=== PATIENT | female | born 1985 | race Caucasian/White ===

== ENCOUNTER → 2017-07-02 | Outpatient (CLI) | payer OTHER | LOC: LABWHC1 07:45 | PROVIDERS: ATTEND Obstetrics & Gynecology | DX: Z31.69 Encounter for other general counseling and advice on procreation (principal) | CPT/HCPCS: 36415; 83001; 83002; 84439; 84443 ==

== ENCOUNTER → 2018-07-04 | Outpatient (CLI) | payer OTHER ==
--- NOTE | 2018-07-05 14:38 | US ---
EXAMINATION TYPE: US thyroid st tissue head/neck DATE OF EXAM: 07/04/2018 COMPARISON: NONE CLINICAL HISTORY: E04.1 Thyroid nodule. GLAND SIZE: Right Lobe: 4.2 x 1.3 x 1.4 cm Overall Parenchyma: homogenous Left Lobe: 5.1 x 1.5 x 1.2 cm Overall Parenchyma: homogeneous Isthmus Thickness: 0.4 cm NODULES RIGHT: # of nodules measured on right: 1 1. 0.6 X 0.4 x 0.5 cm hypoechoic mixed nodule at the mid pole with well-defined margins; . This no dule is wider than tall and shows no intranodular vascularity. Prior size: No previous LEFT: # of nodules measured on left: 1 1. 0.9 X 0.6 x 0.6 cm hypoechoic cystic nodule at the lower pole with well-defined margins; . This nodule is wider than tall and shows no intranodular vascularity. Prior size: No previous ISTHMUS: # of nodules measured in the isthmus: 0 Bilateral neck scanned, no evidence of lymphadenopathy. IMPRESSION: Subcentimeter nodules present bilaterally.
== END ==
LOC: RADUSWWP 16:01
PROVIDERS: ATTEND Surgery
DX: E04.2 Nontoxic multinodular goiter (principal)
CPT/HCPCS: 76536

== ENCOUNTER → 2018-12-25 | Outpatient (CLI) | payer OTHER ==
--- NOTE | 2018-12-25 15:50 | US ---
EXAMINATION TYPE: US thyroid st tissue head/neck DATE OF EXAM: 12/25/2018 COMPARISON: US 2018 CLINICAL HISTORY: E04.1 Thyroid nodule. Thyroid nodules, on thyroid meds. GLAND SIZE: Right Lobe: 4.5 x 1.8 x 1.8 cm Overall Parenchyma: homogenous Left Lobe: 5.5 x 1.6 x 1.5 cm Overall Parenchyma: homogeneous Isthmus Thickness: 0.3 cm NODULES RIGHT: # of nodules measured on right: 1 1. 1.0 X 0.4 x 1.0 cm hypoechoic mixed nodule at the lower pole with well-defined margins. This nod ule is wider than tall and shows intranodular vascularity. Prior size: no previous 2. 0.6 X 0.5 x 0.5 cm hyperechoic with hypoechoic peripheral rim nodule at the mid pole with well-d efined margins. This nodule is wider than tall and shows no intranodular vascularity. Prior size: 0.6 x 0.4 x 0.5 cm LEFT: # of nodules measured on left: 1 1. 0.9 X 0.7 x 0.7 cm hypoechoic cystic nodule at the lower pole with well-defined margins. This no dule is wider than tall and shows no intranodular vascularity. Prior size: 0.9 x 0.6 x 0.6 cm ISTHMUS: # of nodules measured in the isthmus: 0 Bilateral neck scanned, no evidence of lymphadenopathy. Homogeneous normal-sized thyroid with scattered small nodules as detailed above. Largest mixed nodule anterior right thyroid lobe mid to lower pole level likely was present in retrospect on prior study image 12. IMPRESSION: Presumed overall stable findings as detailed above.
== END ==
LOC: RADUSWWP 15:02
PROVIDERS: ATTEND Surgery
DX: E04.1 Nontoxic single thyroid nodule (principal)
CPT/HCPCS: 76536

== ENCOUNTER → 2019-07-18 | Outpatient (CLI) | payer OTHER ==
[2019-07-18 13:38] LABS: HCT 35.5 % (34.0-46.0); HGB 10.8 gm/dL (11.4-16.0); Hypochromasia Moderate; MCH 19.7 pg (25.0-35.0); MCHC 30.4 g/dL (31.0-37.0); MCV 64.8 fL (80.0-100.0); Mean Platelet Volume 6.2; Microcytosis Marked; Platelet Count 415 k/uL (150-450); RBC 5.48 m/uL (3.80-5.40); RDW 15.3 % (11.5-15.5); WBC 13.3 k/uL (3.8-10.6)
[2019-07-18 18:37] LABS: African American GFR (CKD) 131.9 (60.0-200.0); Albumin 4.5 g/dL (3.80-4.90); Albumin/Globulin Ratio 1.88 (1.60-3.17); Anion Gap 10.5 mmol/L (4.00-12.00); BUN/Creat Ratio 14.29 Ratio (12.00-20.00); Calcium 9.5 mg/dL (8.7-10.3); Carbon Dioxide 25.5 mmol/L (21.6-31.8); Globulin 2.4 g/dL (1.6-3.3); Potassium 4.7 mmol/L (3.5-5.5); Total Bilirubin 1.3 mg/dL (0.3-1.2); Total Protein 6.9 g/dL (6.2-8.2)
[2019-07-18 18:46] LABS: Follicle Stimulating Hormone 7.3 mIU/mL
[2019-07-18 21:13] LABS: HIV 1 AB Non-Reactive (Non-Reactive); HIV 2 AB Non-Reactive (Non-Reactive); HIV AB P24 Non-Reactive (Non-Reactive); HIV P24 AG Non-Reactive (Non-Reactive)
[2019-07-18 21:26] LABS: Hemoglobin A1C 5.2 % (4.0-6.0)
[2019-07-18 22:12] LABS: Hepatitis B Surface Antigen Non-Reactive (Non-Reactive); Hepatitis C IgG Antibody Non-Reactive (Non-Reactive)
[2019-07-20 11:31] LABS: Act Protein C Resist Interp Negative; Activated Protein C Resistance 3.53 (1.60-4.90)
== END | disposition home or self-care (01) ==
LOC: LABWHC1 11:58
PROVIDERS: ATTEND Obstetrics & Gynecology Reproductive Endocrinology
DX: Z11.3 Encounter for screening for infections with a predominantly sexual mode of transmission (principal); Z13.29 Encounter for screening for other suspected endocrine disorder; N97.9 Female infertility, unspecified; E03.9 Hypothyroidism, unspecified
CPT/HCPCS: 36415; 80053; 82397; 83001; 83002; 83036; 84146; 84443; 85027; 85307; 86762; 86780; 86803; 86850; 86900; 86901; 87340; 87390

== ENCOUNTER → 2020-05-08 | Outpatient (CLI) | payer OTHER ==
[2020-05-08 11:27] LABS: Basophils # (A) 0.1 k/uL (0-0.2); Basophils % (A) 1 %; Eosinophils # (A) 0.2 k/uL (0-0.7); Eosinophils % (A) 3 %; HCT 36.5 % (34.0-46.0); HGB 11.3 gm/dL (11.4-16.0); Hypochromasia Marked; Lymphocytes # (A) 2.4 k/uL (1.0-4.8); Lymphocytes % (A) 33 %; MCH 20.1 pg (25.0-35.0); MCHC 30.9 g/dL (31.0-37.0); Microcytosis Marked; Monocytes # (A) 0.2 k/uL (0-1.0); Monocytes % (A) 3 %; Neutrophils # (A) 4.3 k/uL (1.3-7.7); Neutrophils % (A) 59 %; Platelet Count 429 k/uL (150-450); RBC 5.61 m/uL (3.80-5.40); RDW 15.9 % (11.5-15.5); WBC 7.2 k/uL (3.8-10.6)
[2020-05-08 11:37] LABS: African American GFR (CKD) >90 (>60 ml/min/1.73 sqM); Anion Gap 10 mmol/L; Blood Urea Nitrogen 7 mg/dL (7-17); Calcium 10.1 mg/dL (8.4-10.2); Carbon Dioxide 23 mmol/L (22-30); Chloride 105 mmol/L (98-107); Glucose 169 mg/dL (74-99); Non-African American GFR(CKD) >90 (>60 ml/min/1.73 sqM); Potassium 4.1 mmol/L (3.5-5.1); Sodium 138 mmol/L (137-145)
[2020-05-08 11:45] LABS: Appearance,Urine Cloudy (Clear); Bacteria,Urine Rare /hpf; Bilirubin,Urine Negative (Negative); Blood,Urine Negative (Negative); Color,Urine Yellow; Glucose,Urine (UA) Negative (Negative); Ketones,Urine Negative (Negative); Leukocyte Esterase,Urine Moderate (Negative); Mucus,Urine Rare /hpf; Nitrite,Urine Negative (Negative); Protein,Urine Negative (Negative); RBC,Urine 3 /hpf (0-5); Specific Gravity,Urine 1.017 (1.001-1.035); Squamous Epithelial Cell,Urine 8 /hpf (0-4); Urobilinogen,Urine <2.0 mg/dL (<2.0); WBC,Urine 9 /hpf (0-5)
== END | disposition home or self-care (01) ==
LOC: LABPAT 10:55
PROVIDERS: ATTEND Urology
DX: Z01.818 Encounter for other preprocedural examination (principal); N13.30 Unspecified hydronephrosis; E11.9 Type 2 diabetes mellitus without complications; N13.2 Hydronephrosis with renal and ureteral calculous obstruction
CPT/HCPCS: 80048; 81001; 85025; 87086

== ENCOUNTER → 2020-05-08 | Outpatient (CLI) | payer OTHER | END | disposition home or self-care (01) | LOC: LABWHC1 10:59 | PROVIDERS: ATTEND Obstetrics & Gynecology Reproductive Endocrinology | DX: Z13.21 Encounter for screening for nutritional disorder (principal) | CPT/HCPCS: 36415; 82306 ==

== ENCOUNTER → 2020-07-28 | Outpatient (CLI) | payer OTHER ==
--- NOTE | 2020-07-28 18:15 | US ---
EXAMINATION TYPE: US kidneys/renal and bladder DATE OF EXAM: 07/28/2020 COMPARISON: 05/14/2020 CLINICAL HISTORY: 34-year-old female N20.1 Calculus of ureter. Follow up from left side lithotripsy a couple months ago TECHNIQUE: Multiple sonographic images of the kidneys and bladder are obtained. EXAM MEASUREMENTS: Right Kidney: 12.0 x 5.7 x 6.5 cm Left Kidney: 11.1 x 5.7 x 4.4 cm No hydronephrosis on either side. On the left, echogenic focus visualized upper pole measuring 0.8 cm Bladder: wnl Bilateral Jets seen: Yes IMPRESSION: No evidence of hydronephrosis. Both ureteral jets are visualized. Suggestion of an 8mm nonobstructive calculus upper pole left kidney.
== END | disposition home or self-care (01) ==
LOC: RADUSWWP 13:35
PROVIDERS: ATTEND Urology
DX: N20.1 Calculus of ureter (principal)
CPT/HCPCS: 76770

== ENCOUNTER → 2024-06-19 | Outpatient (CLI) | payer OTHER ==
[2024-06-19 16:23] LABS: Appearance,Urine Clear (Clear); Bilirubin,Urine Negative (Negative); Blood,Urine Negative (Negative); Color,Urine Yellow (Yellow); Ketones,Urine Negative (Negative); Nitrite,Urine Negative (Negative); Specific Gravity,Urine 1.015 (1.001-1.030)
[2024-06-19 16:55] LABS: Bacteria,Urine None Seen (None Seen); Calcium Oxalate Crystals,Urine Present (None Seen)
[2024-06-19 16:59] LABS: HCT 38.7 % (37.2-46.3); HGB 11.6 g/dL (12.0-15.0); MCH 19.2 pg (27.0-32.0); MCV 64.2 FL (80.0-97.0); Mean Platelet Volume 11.4 FL (9.5-12.2); NRBC Per 100 WBC 0 X 10*3/uL (0.00-0.01); Platelet Count 508 X 10*3/uL (140-440); RBC 6.03 X 10*6/uL (4.10-5.20); RDW 16.3 % (11.5-14.5)
[2024-06-19 17:17] LABS: BUN/Creat Ratio 13.33 Ratio (12.00-20.00); Calcium 9.9 mg/dL (8.7-10.3); Carbon Dioxide 23.8 mmol/L (21.6-31.8); Chloride 102 mmol/L (96-109); Glucose 135 mg/dL (70-110); Sodium 138 mmol/L (135-145)
[2024-06-19 17:36] LABS: Basophils # (A) 0.07 X 10*3/uL (0.00-0.10); Basophils % (A) 0.7 %; Eosinophils % (A) 2.1 %; Lymphocytes # (A) 3.21 X 10*3/uL (0.90-5.00); Lymphocytes % (A) 33.8 %; Microcytosis (M) 3+; Monocytes # (A) 0.51 X 10*3/uL (0.20-1.00); Monocytes % (A) 5.4 %; Neutrophils # (A) 5.45 X 10*3/uL (1.80-7.70); Neutrophils % (A) 57.4 %
== END | disposition home or self-care (01) ==
LOC: LABPAT 10:46
PROVIDERS: ATTEND Urology
DX: Z01.818 Encounter for other preprocedural examination
CPT/HCPCS: 80048; 81001; 85025; 87086

== ENCOUNTER 2024-06-26 09:38 | Day surgery (SDC) | payer OTHER ==
--- NOTE | 2024-06-26 09:59 | XR ---
EXAMINATION TYPE: XR KUB DATE OF EXAM: 06/26/2024 HISTORY: Pain Comparison: 05/14/2020 Single KUB is submitted for interpretation. Findings: Right renal calculi: None Visualized. Right ureteral calculi: None Visualized. Left renal calculi: Lower pole left kidney measuring 11.7 mm. Additional 4 mm calculus upper pole le ft kidney. Left ureteral calculi: None Visualized. Pelvic calcifications: None Visualized. Bowel gas pattern is unremarkable. No free air. No mass effects. IMPRESSION: 1. Significant change in left-sided nephrolithiasis.
[2024-06-26] MEDS ORDERED: droPERidol 5 MG/2 ML VIAL IVP ONE (10:11)
[2024-06-26] MEDS ORDERED: HYDROmorphone 0.5 MG/0.5 ML SYRINGE IVP PRN (10:11)
[2024-06-26] MEDS ORDERED: LIDOCAINE 1% (10MG/ML) FOR IV START INTRADERMA PRN (10:11)
--- NOTE | 2024-06-26 10:21 | P.HPIHPCON ---
History of Present Illness H&P Date: 06/26/24 Chief Complaint: Left renal stone This is a 38-year-old female with history of a 1.2 cm lower pole stone and a 4 mm upper pole stone, she is having left flank pain secondary to her stone, option of left-sided ureteroscopy with holmium laser versus ESWL was discussed, risk-benefit of each approach were discussed, she agreed to proceed with left- sided ureteroscopy with holmium laser, aware of the risk which includes but not limited to bleeding, infection, injury to the ureter Consent for Procedure: I have explained the operation/procedure to the patient, including the risks, benefits, side effects, alternative therapies (including not receiving the proposed treatment or service), the likelihood of the patient achieving his/her goals, and potential recuperation problems for the procedure/sedation/analgesia, as well as any blood products, if indicated. I also explained to the patient the risks, benefits and side effects of the alternatives, as well as the risks related to not receiving the proposed procedure, care, treatment, or services. Past Medical History Past Medical History: Diabetes Mellitus, GERD/Reflux, Thyroid Disorder Additional Past Medical History / Comment(s): pre diabetic diet controlled, hypothyroid - no meds. current kidney stones. History of Any Multi-Drug Resistant Organisms: None Reported Additional Past Surgical History / Comment(s): cystoscopy/lithotrypsy. polyps removed from uterus. IVF, nose surgery to straighten septum Past Anesthesia/Blood Transfusion Reactions: Family History of Problems w/ Anesthesia Additional Past Anesthesia/Blood Transfusion Reaction / Comment(s): mom memory loss Smoking Status: Never smoker - Past Family History Mother Family Medical History: Cancer Additional Family Medical History / Comment(s): breast cancer Medications and Allergies Home Medications Medication Instructions Recorded Confirmed Type Acetaminophen Tab [Tylenol] 325 mg PO DAILY PRN 05/12/20 06/26/24 History Allergies Allergy/AdvReac Type Severity Reaction Status Date / Time pineapple Allergy lips Verified 06/26/24 10:13 swelling Surgical - Exam - General no distress, no pain - Eyes normal ocular movement, no pale - ENT normal nares, normal mucosa - Respiratory normal expansion, normal respiratory effort Assessment and Plan Assessment: OR for left-sided ureteroscopy, holmium laser lithotripsy, stone basketing and stent insertion
[2024-06-26 10:38] LABS: Glucose,Whole Blood 96 mg/dL (70-110)
[2024-06-26] MEDS: LACTATED RINGERS 1,000 ML IV SCH (10:38)
[2024-06-26] MEDS: SCOPOLAMINE 1 MG/72 HR PATCH TRANSDERM ONE (10:38)
[2024-06-26] MEDS: ONDANSETRON 4 MG/2 ML VIAL IVP ONE (10:38)
[2024-06-26] MEDS: DEXAMETHASONE SOD PHOSPHATE 4 MG/ML 1 ML VIAL IVP STA (10:39)
[2024-06-26] MEDS: IV FLUID CONTINUATION 1,000 ML IV ONE (10:42)
[2024-06-26] MEDS ORDERED: SUCCINYLCHOLINE CHLORIDE 200 MG/10 ML VIAL IV ONE (11:40)
[2024-06-26] MEDS ORDERED: LIDOCAINE 1% INJ 10MG/ML (20 ML MDV) ONE (11:40)
[2024-06-26] MEDS ORDERED: MIDAZOLAM 2 MG/2 ML VIAL ONE (11:40)
[2024-06-26] MEDS ORDERED: fentaNYL (PF) 50 MCG/ML 2 ML AMP ONE (11:40)
[2024-06-26] MEDS ORDERED: PROPOFOL 10 MG/ML 20 ML VIAL IV ONE (11:40)
[2024-06-26 13:30] VITALS: RESP 16
--- NOTE | 2024-06-26 13:39 | P.OP ---
Date of Procedure: 06/26/24 Preoperative Diagnosis: Renal stone Postoperative Diagnosis: Same Procedure(s) Performed: Cystoscopy, left ureteroscopy, laser lithotripsy, stone basketing and stent insertion Implants: 6 Lao by 26 cm stent in the left ureter Anesthesia: KAYLA Surgeon: Luigi Arias Estimated Blood Loss (ml): 5 Pathology: other (Left renal stone) Condition: stable Disposition: PACU Indications for Procedure: This is a 38-year-old female with history of a 1.2 cm lower pole stone and a 4 mm upper pole stone, she is having left flank pain secondary to her stone, option of left-sided ureteroscopy with holmium laser versus ESWL was discussed, risk-benefit of each approach were discussed, she agreed to proceed with left- sided ureteroscopy with holmium laser, aware of the risk which includes but not limited to bleeding, infection, injury to the ureter Operative Findings: Large stone in the lower pole of the kidney, an additional stone in the upper pole of the kidney Description of Procedure: Patient brought to the operating room, general anesthesia was induced. She was prepped and draped in sterile fashion placed in dorsolithotomy position. Cystoscopy through the 21 Lao sheath was inserted per urethra, cystoscopy was performed showed no abnormality within the bladder. Attention was then carried to the left ureteral orifice which was intubated with a sensor wire, the wire was advanced under fluoroscopy into the kidney. Next an 1113 Lao access sheath was passed over the wire and into the proximal ureter. The flexible ureteroscope was inserted through the access sheath, renoscopy was performed showed stone in the upper pole and a large stone in the lower pole. Using the holmium laser the stones were fragmented, sizable stone fragments were removed using the stone basket. Repeat renoscopy showed no sizable stones or injury to the kidney, on fluoroscopy there was no radiopaque densities seen. Pullback ureteroscopy was performed which showed no injury to the ureter or any ureteral stone as ureteroscope was withdrawn a sensor wire was advanced through. Next a ureteral stent was passed over the wire, the proximal curl was visualized on fluoroscopy and the distal curl was visualized using the cystoscope. The bladder was emptied at the end of the case. Patient tolerated procedure was taken to recovery in stable condition
[2024-06-26 13:51] VITALS: TEMP 98.4
[2024-06-26 14:49] VITALS: BP 144/83; PULSE 89
--- NOTE | 2024-07-19 10:36 | FL ---
EXAMINATION TYPE: FL guidance operating room DATE OF EXAM: 06/26/2024 1:23 PM COMPARISON: Pre Operative Images if available both CT/MRI or plain film CLINICAL INDICATION: Female, 38 years old with history of CYSTO LITHO; TECHNIQUE: FL guidance operating room, multiple fluoroscopic images provided for procedure. Total fluoroscopy time: 33 seconds Total submitted images to PACS: 1 DAP: 1.14 mGym2 Gycm2 uGym2 cGycm2 or equivalent. FINDINGS: Multiple intraoperative fluoroscopic images were taken resulting in ureteral stent placement with sup erior pigtail in appropriate position projecting over the renal pelvis. No immediate intraoperative c omplication. Multilevel degeneration changes throughout the spine. IMPRESSION: 1. No evidence for intraoperative complication. 2. Please see the operative/procedural note for further details. [facility], , 07/19/2024 10:33 AM
== END 2024-06-26 15:02 | disposition home or self-care (01) ==
LOC: OR 09:38
PROVIDERS: ATTEND Urology
DX: N20.0 Calculus of kidney (principal); E03.9 Hypothyroidism, unspecified; E11.9 Type 2 diabetes mellitus without complications; K21.9 Gastro-esophageal reflux disease without esophagitis; Z91.018 Allergy to other foods; Z79.899 Other long term (current) drug therapy; Z80.3 Family history of malignant neoplasm of breast
CPT/HCPCS: 74018; 81025; 82365